=== PATIENT | female | born 1950 | race African-American/Black ===

== ENCOUNTER 2021-12-17 11:52 | Day surgery (SDC) | payer MEDICARE, BC ==
[2021-12-17] MEDS ORDERED: diphenhydrAMINE 25 MG CAP PO SCH (12:15)
[2021-12-17] MEDS ORDERED: Acetaminophen 500 MG TAB PO SCH (12:15)
[2021-12-17] MEDS ORDERED: diphenhydrAMINE 25 MG CAP ONE (13:15)
[2021-12-17] MEDS ORDERED: Acetaminophen 500 MG TAB ONE (13:15)
[2021-12-17 15:29] VITALS: TEMP 98.4
[2021-12-17 15:59] VITALS: BP 165/70
== END 2021-12-17 16:00 | disposition home or self-care (01) ==
LOC: ONC/OP 11:52
PROVIDERS: ATTEND Internal Medicine Hematology & Oncology
PROC: 30233N1 Transfusion of Nonautologous Red Blood Cells into Peripheral Vein, Percutaneous Approach (ICD-10-PCS; principal; 2021-12-17)
DX: D64.9 Anemia, unspecified (principal); D69.6 Thrombocytopenia, unspecified
CPT/HCPCS: 36430; 86850; 86900; 86901; P9016

== ENCOUNTER 2022-10-21 23:55 | Inpatient (IN) | payer MEDICARE, BC ==
[~2022-10-21 23:55] MED LIST: Sodium Chloride 0.9% 1,000 ML IV SCH
[2022-10-21 23:58] VITALS: BMI 31.7
[2022-10-22] MEDS ORDERED: Senokot S 8.6-50 MG TAB PO PRN (00:49)
[2022-10-22] MEDS ORDERED: Bisacodyl 5 MG TAB PO PRN (00:49)
[2022-10-22] MEDS ORDERED: Acetaminophen 325 MG TAB PO PRN (00:49)
[2022-10-22] MEDS ORDERED: Ondansetron ODT 4 MG TAB PO PRN (00:49)
[2022-10-22] MEDS ORDERED: Sodium Chloride 0.9% 1,000 ML IV SCH (01:00)
[2022-10-22 02:38] LABS: #Eosinphils 0.1 thou/uL (0.0-0.7); #Lymphocytes 1.2 thou/uL (1.20-3.40); #Monocytes 0.7 thou/uL (0.11-0.59); #Neutrophils 5.9 thou/uL (1.40-6.50); %Basophils 0.1 % (0.0-1.0); %Eosinophils 1.6 % (0.0-10.0); %Lymphocytes 15.3 % (21.0-51.0); %Monocytes 8.4 % (0.0-10.0); %Neutrophils 74.6 % (42.0-75.0); Hemoglobin 7.2 g/dL (12.0-16.0); Mean Corpuscular HGB CONC 32.7 g/dL (32.0-36.0); Mean Corpuscular Hemoglobin 28.3 pg (27.0-31.0); Mean Corpuscular Volume 86.5 fl (78.0-98.0); Mean Platelet Volume 9.2 fL (7.4-10.4); Platelet Count 255 10x3/uL (130-400); RBC Distribution Width 18.6 % (11.5-14.5); Red Blood Cell (RBC) Count 2.53 mill/uL (4.20-5.40); White Blood Cell (WBC) Count 7.9 10x3/uL (4.8-10.8)
[2022-10-22 02:42] LABS: ALT (SGPT) 15 U/L (8-55); AST (SGOT) 15 U/L (5-34); Albumin 3.7 g/dL (3.4-4.8); Alkaline Phosphatase 96 U/L (40-110); Anion Gap 15 mmol/L (10-20); BUN (Urea Nitrogen) 96 mg/dL (9.8-20.1); Bilirubin, Total 0.2 mg/dL (0.2-1.2); Calc. Creatinine Clearance 27 mL/min (70-130); Calcium 11.4 mg/dL (7.8-10.44); Carbon Dioxide 19 mmol/L (23-31); Chloride 112 mmol/L (98-107); Estimated GFR 17; Globulin 3.5 g/dL (2.4-3.5); Glucose 119 mg/dL (83-110); Iron 47 ug/dL (50-170); Iron Binding Capacity, Total 303 mcg/dL (265-497); Potassium 4.1 mmol/L (3.5-5.1); Protein, Total 7.2 g/dL (5.8-8.1); Sodium 142 mmol/L (136-145)
[2022-10-22] MEDS ORDERED: Lactated Ringer's 1,000 ML IV SCH (08:15)
[2022-10-22] MEDS ORDERED: Clopidogrel Bisulfate 75 MG TAB PO SCH (09:00)
[2022-10-22] MEDS: Atorvastatin Calcium 40 MG TAB PO SCH (09:23)
[2022-10-22] MEDS: Amlodipine 10 MG TAB PO SCH (09:23)
[2022-10-22] MEDS: Aspirin 325 MG TAB PO SCH (09:23)
[2022-10-22] MEDS: Ferrous Sulfate 325 MG TAB PO SCH (09:23)
[2022-10-22] MEDS: Famotidine 20 MG TAB PO SCH (09:24)
[2022-10-22 15:20] LABS: Mean Corpuscular HGB CONC 32.6 g/dL (32.0-36.0); Mean Corpuscular Hemoglobin 28.3 pg (27.0-31.0); Mean Corpuscular Volume 86.9 fl (78.0-98.0); Mean Platelet Volume 9.3 fL (7.4-10.4); Platelet Count 259 10x3/uL (130-400); RBC Distribution Width 18.9 % (11.5-14.5); Red Blood Cell (RBC) Count 2.48 mill/uL (4.20-5.40); White Blood Cell (WBC) Count 6.8 10x3/uL (4.8-10.8)
[2022-10-22 15:34] LABS: Anion Gap 10 mmol/L (10-20); BUN (Urea Nitrogen) 88 mg/dL (9.8-20.1); Calc. Creatinine Clearance 30 mL/min (70-130); Carbon Dioxide 21 mmol/L (23-31); Chloride 115 mmol/L (98-107); Estimated GFR 19; Glucose 102 mg/dL (83-110); Magnesium 2.7 mg/dL (1.6-2.6); Potassium 4.4 mmol/L (3.5-5.1); Sodium 142 mmol/L (136-145)
[2022-10-23 05:28] LABS: Anion Gap 14 mmol/L (10-20); BUN (Urea Nitrogen) 78 mg/dL (9.8-20.1); Calc. Creatinine Clearance 31 mL/min (70-130); Calcium 10.8 mg/dL (7.8-10.44); Carbon Dioxide 16 mmol/L (23-31); Chloride 117 mmol/L (98-107); Estimated GFR 20; Glucose 82 mg/dL (83-110); Potassium 5.1 mmol/L (3.5-5.1); Sodium 142 mmol/L (136-145)
[2022-10-23 08:38] LABS: Band 3 % (5-11); Eosinophils 5 % (0-10); Hemoglobin 8.5 g/dL (12.0-16.0); Lymphocytes 18 % (21-51); MDiff Complete? YES; Mean Corpuscular HGB CONC 33.4 g/dL (32.0-36.0); Mean Corpuscular Hemoglobin 29.4 pg (27.0-31.0); Mean Corpuscular Volume 88.2 fl (78.0-98.0); Mean Platelet Volume 8.9 fL (7.4-10.4); Monocytes 7 % (0-10); Neutrophil 67 % (42-75); Nucleated RBC 1 % (0); Platelet Count 251 10x3/uL (130-400); Platelet Morphology Comment Appears Adequate; Polychromasia SLIGHT = 2-3 cells (100X) (0-2/hpf); RBC Distribution Width 17.6 % (11.5-14.5); White Blood Cell (WBC) Count 7.3 10x3/uL (4.8-10.8)
[2022-10-23] MEDS ORDERED: FLU VACC QS2022-23(65YR UP)/PF 240 MCG/0.7 ML SYRINGE IM ONE (09:00)
[2022-10-23] MEDS ORDERED: Labetalol HCl 100 MG/20 ML VIAL SLOW IVP PRN (09:13)
[2022-10-23] MEDS: Ferrous Sulfate 325 MG TAB PO SCH (09:14)
[2022-10-23] MEDS: hydrALAZINE 25 MG TAB PO SCH ×2 (09:15→20:08)
[2022-10-23] MEDS: Famotidine 20 MG TAB PO SCH (09:15)
[2022-10-23] MEDS: Atorvastatin Calcium 40 MG TAB PO SCH (09:15)
[2022-10-23] MEDS: NIFEdipine XL 60 MG TAB PO SCH (09:15)
[2022-10-23] MEDS: Aspirin 325 MG TAB PO SCH (09:16)
[2022-10-23] MEDS: Amlodipine 10 MG TAB PO SCH (09:16)
[2022-10-23 14:07] LABS: Hemoglobin 9.5 g/dL (12.0-16.0); Mean Corpuscular HGB CONC 33.2 g/dL (32.0-36.0); Mean Corpuscular Hemoglobin 29.4 pg (27.0-31.0); Mean Corpuscular Volume 88.6 fl (78.0-98.0); Mean Platelet Volume 8.7 fL (7.4-10.4); Platelet Count 292 10x3/uL (130-400); RBC Distribution Width 17.8 % (11.5-14.5); Red Blood Cell (RBC) Count 3.24 mill/uL (4.20-5.40); White Blood Cell (WBC) Count 7.4 10x3/uL (4.8-10.8)
[2022-10-23 14:24] LABS: Magnesium 2.6 mg/dL (1.6-2.6)
[2022-10-24] MEDS ORDERED: Aspirin 81 mg Enteric Coated Tablet PO SCH (09:00)
[2022-10-24] MEDS ORDERED: Amlodipine 10 MG TAB PO SCH (09:00)
[2022-10-24 11:08] LABS: Hemoglobin 9.8 g/dL (12.0-16.0); Mean Corpuscular HGB CONC 32.2 g/dL (32.0-36.0); Mean Platelet Volume 8.7 fL (7.4-10.4); Platelet Count 296 10x3/uL (130-400); Red Blood Cell (RBC) Count 3.38 mill/uL (4.20-5.40)
[2022-10-24 11:26] LABS: Anion Gap 13 mmol/L (10-20); BUN (Urea Nitrogen) 76 mg/dL (9.8-20.1); Calc. Creatinine Clearance 33 mL/min (70-130); Calcium 10.9 mg/dL (7.8-10.44); Carbon Dioxide 18 mmol/L (23-31); Chloride 114 mmol/L (98-107); Estimated GFR 20; Glucose 104 mg/dL (83-110); Potassium 4.3 mmol/L (3.5-5.1); Sodium 141 mmol/L (136-145)
[2022-10-24] MEDS: Famotidine 20 MG TAB PO SCH (12:49)
[2022-10-24] MEDS: Ferrous Sulfate 325 MG TAB PO SCH (12:49)
[2022-10-24] MEDS: NIFEdipine XL 60 MG TAB PO SCH (12:50)
[2022-10-24] MEDS: Atorvastatin Calcium 40 MG TAB PO SCH (12:50)
[2022-10-24] MEDS: hydrALAZINE 25 MG TAB PO SCH (12:50)
[2022-10-24 16:44] VITALS: BP 169/77; TEMP 97.5
== END 2022-10-24 19:00 | disposition home or self-care (01) | DRG 292 ==
LOC: 2NO 23:55
PROVIDERS: ADMIT Internal Medicine; ATTEND Internal Medicine
PROC: 30233N1 Transfusion of Nonautologous Red Blood Cells into Peripheral Vein, Percutaneous Approach (ICD-10-PCS; principal; 2022-10-22)
DX: I13.0 Hypertensive heart and chronic kidney disease with heart failure and stage 1 through stage 4 chronic kidney disease, or unspecified chronic kidney disease (principal); N17.9 Acute kidney failure, unspecified; N18.4 Chronic kidney disease, stage 4 (severe); R00.1 Bradycardia, unspecified; D63.1 Anemia in chronic kidney disease; Z20.822 Contact with and (suspected) exposure to COVID-19; R07.9 Chest pain, unspecified; I25.10 Atherosclerotic heart disease of native coronary artery without angina pectoris; I50.9 Heart failure, unspecified; I25.2 Old myocardial infarction; Z95.1 Presence of aortocoronary bypass graft; Z95.828 Presence of other vascular implants and grafts; Z79.899 Other long term (current) drug therapy; Z79.82 Long term (current) use of aspirin; Z79.02 Long term (current) use of antithrombotics/antiplatelets; Z90.710 Acquired absence of both cervix and uterus
CPT/HCPCS: 36415; 36430; 70450; 76770; 78452; 80048; 80053; 83540; 83550; 83735; 84484; 85025; 85027; 86850; 86870; 86900; 86901; 86905; 86922; 93017; 93306; A9500; J7050; J7120; P9016; U0003; U0005

== ENCOUNTER 2025-07-13 10:37 | Day surgery (SDC) | payer MEDICARE ==
[2025-07-13] MEDS ORDERED: Acetaminophen 500 MG TAB ONE (11:49)
[2025-07-13] MEDS: Acetaminophen 500 MG TAB PO SCH (11:50)
[2025-07-13] MEDS: diphenhydrAMINE 25 MG CAP PO SCH (11:50)
[2025-07-13] MEDS ORDERED: diphenhydrAMINE 25 MG CAP ONE (11:50)
[2025-07-13 14:43] VITALS: BP 199/85; TEMP 97.9
== END 2025-07-13 15:03 | disposition home or self-care (01) ==
LOC: ONC/OP 10:37
PROVIDERS: ATTEND Internal Medicine Hematology & Oncology
DX: D64.9 Anemia, unspecified (principal); D69.6 Thrombocytopenia, unspecified
CPT/HCPCS: 36430; 86850; 86900; 86901; 86902; 86920; 86922; P9016